=== PATIENT | male | born 1965 | race Caucasian/White ===

== ENCOUNTER 2016-12-22 05:11 | Emergency (ER) | payer BC, OTHER ==
[~2016-12-22] VITALS: Ht 167.6 cm; Wt 93.0 kg
[~2016-12-22 05:11] MED LIST: METO25 PO; SOMA350T PO; VASO10TA8 PO; [UNRECOGNIZED DRUG - REMARK] PO
[2016-12-22 05:12] VITALS: BP 144/91; PULSE 80; RESP 18; TEMP 97.9; O2SAT 100
[2016-12-22] MEDS ORDERED: METO100T PO (05:57)
[2016-12-22] MEDS ORDERED: MYCO500 PO (05:57)
[2016-12-22] MEDS ORDERED: ENAL20TA PO (05:57)
[2016-12-22] MEDS ORDERED: LISI40TA PO (05:57)
[2016-12-22] MEDS ORDERED: CEPH-460 PO (06:20)
[2016-12-22] MEDS ORDERED: HYDR-3533 PO (06:20)
--- NOTE | 2016-12-22 06:34 | PD ---
HPI Chief Complaint: Injury Time Seen by Provider: 06:25 Travel History International Travel<30 days: No Contact w/Intl Traveler<30days: No Traveled to known affect area: No History of Present Illness HPI 51-year-old [id number] white male presents to emergency department for evaluation of left forearm pain. 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 The patient states that he was working on a handicap ramp when the metal lid fell down striking his left forearm. The patient denies any numbness or tingling. He states that he has pain in the mid forearm. He denies any pain in the elbow, wrist or hand. He does elicit pain with movement of the wrist and fingers but no localizing pain on palpation. He is up-to-date with immunizations. The patient denies any other injuries. Pain is moderate. PFSH Past Medical History Narrative Medical Hypertension, SLE Hx Anticoagulant Therapy: Yes (ASA) Autoimmune Disease: Yes (LUPUS) Cardiovascular Problems: Yes (HTN) Hypertension: Yes Tetanus Vaccination: < 5 Years Past Surgical History Surgical History: No Previous Surgery Social History Alcohol Use: No Tobacco Use: No Substance Use: No Allergies-Medications (Allergen,Severity, Reaction): Coded Allergies: No Known Allergies (Verified , 12/22/16) Reported Meds & Prescriptions Reported Meds & Active Scripts Active Lortab (Hydrocodone-Acetaminophen) 5-325 Mg Tab 1 Tab PO Q4H PRN Keflex (Cephalexin) 500 Mg Cap 500 Mg PO Q6H Reported Cellcept (Mycophenolate Mofetil) 500 Mg Tab 1,000 Mg PO BID Lisinopril 40 Mg Tab 40 Mg PO DAILY Enalapril (Enalapril Maleate) 20 Mg Tab 20 Mg PO DAILY Metoprolol Tartrate 100 Mg Tab 100 Mg PO BID Review of Systems Except as stated in HPI: all other systems reviewed are Neg Physical Exam Narrative GENERAL: This is a well-nourished, well-developed patient, in no apparent distress. SKIN: Patient has a superficial abrasion with ecchymosis to the left anterior forearm. It is tender to touch. No laceration. HEAD: Atraumatic. Normocephalic. EYES: PERRL, EOMI, no discharge or injection. No scleral icterus. EARS: Clear NOSE: Nasal turbinates appear normal. THROAT: Mucosa pink and moist. Airway patent. NECK: Trachea midline. supple, moves head freely. LUNGS: Clear to auscultation. CV: Regular in rhythm. ABDOMEN: Soft nontender. EXT: No clubbing cyanosis. Examination of the left upper extremity reveals tenderness, swelling in abrasion to the dorsal forearm from the proximal forearm down to just above the wrist. There is no bony tenderness to palpation and percussion of the ulna and radius. No pain in the hand, elbow or shoulder. He does elicit pain with extension and flexion of the wrist as well as the fingers. He has intact gross sensation with good Refill. The volar side of the forearm is soft and supple. Median/ulnar/radial nerves intact Data Data Last Documented VS Vital Signs Date Time Temp Pulse Resp B/P Pulse Ox O2 Delivery O2 Flow Rate FiO2 12/22/16 05:12 97.9 80 18 144/91 100 Orders Forearm (2vws) (12/22/16 05:52) Ice/Cold Pack (12/22/16 05:52) MDM Medical Decision Making Medical Screen Exam Complete: Yes Emergency Medical Condition: Yes Medical Record Reviewed: Yes Interpretation(s) Left forearm: Negative for acute bony injury. Differential Diagnosis MDM: High Differential diagnoses: Fracture, sprain, strain, dislocation, contusion, neurovascular injury Narrative Course X-ray of the left forearm is negative for bony injury. Patient's given prescriptions for Keflex and Lortab. The wound is cleansed and dressed. Ice applied. Patient given Keflex 500 mg by mouth and Lortab 5 mg by mouth. This is left forearm contusion/abrasion Diagnosis Primary Impression: lEFT FOREARM CONTUSION/ABRASION Patient Instructions: General Instructions Departure Forms: Tests/Procedures, Work Release Special Instructions: No work today. Then no use of the left hand times one week. Additional Instructions: Rest. Elevation above the heart. Ice for the next few days. Daily wound care with soap, water, Neosporin. Keflex and Lortab. Recheck with workman's comp in 1 week. Return to the ER for any problems. Med/Other Pt SpecificInfo: Prescription(s) given, Wound Care Scripts Hydrocodone-Acetaminophen (Lortab)5-325 Mg Tab1 Tab PO Q4H PRN (PAIN) #20 TAB Prov:Julisa Fleming MD 12/22/16 Cephalexin (Keflex)500 Mg [id number] Mg PO Q6H #28 CAP Prov:Julisa Fleming MD 12/22/16 Disposition: 01 DISCHARGE HOME Condition: Stable Silvio Penny Dec 22, 2016 06:34
--- NOTE | 2016-12-22 06:37 | RADRPT ---
EXAM DATE/TIME: 12/22/2016 06:16 [facility] COMPARISON: No previous studies available for comparison. INDICATIONS : Left forearm pain and laceration from a crushing injury. MEDICAL HISTORY : None. SURGICAL HISTORY : None. ENCOUNTER: Initial ACUITY: 1 day PAIN SCORE: 8/10 LOCATION: Left Forearm FINDINGS: Two view examination of the left forearm demonstrates no evidence of fracture or dislocation. Bony m ineralization is normal. The soft tissue structures are intact. CONCLUSION: No acute disease. Dayne Hughes MD on December 22, 2016 at 6:35 Board Certified Radiologist. This report was verified electronically.
[2016-12-22] MEDS ORDERED: CEPHALEXIN MONOHYDRATE 500 MG CAP PO ONE (06:45)
[2016-12-22] MEDS ORDERED: ACETAMINOPHEN/HYDROcodone 325 MG/5 MG TAB PO ONE (06:45)
== END 2016-12-22 07:01 | disposition home or self-care (01) ==
LOC: NEPB 05:11
DX: S50.12XA Contusion of left forearm, initial encounter (principal); W20.8XXA Other cause of strike by thrown, projected or falling object, initial encounter; Y93.89 Activity, other specified; Y92.69 Other specified industrial and construction area as the place of occurrence of the external cause; Y99.0 Civilian activity done for income or pay; I10 Essential (primary) hypertension; M32.9 Systemic lupus erythematosus, unspecified; Z79.01 Long term (current) use of anticoagulants
CPT/HCPCS: 73090; 99283